=== PATIENT | female | born 1985 | race Caucasian/White ===

== ENCOUNTER 2016-06-08 12:31 | Inpatient (IN) | payer OTHER ==
[2016-06-08 15:07] VITALS: BMI 36.6
--- NOTE | 2016-06-08 17:26 | HP ---
COWS - Scale Resting Pulse: 2= ME 101-120 Sweatin=Flushed/Facial Moisture Restless Observation: 3= Extraneous Movement Pupil Size: 0= Normal to Room Light Bone or Joint Aches: 2= Severe Diffuse Aches Runny Nose/ Eye Tearin= Runny Nose/Eyes GI Upset > 30mins: 1= Stomach Cramp Tremor Observation: 2= Slight Tremor Visible Yawning Observation: 0= None Anxiety or Irritability: 2=Irritable/Anxious Goose Flesh Skin: 0=Smooth Skin COWS Score: 16 CIWA Score - CIWA Score Nausea/Vomitin-Mild Nausea/No Vomiting Muscle Tremors: 4-Moderate,w/Arms Extend Anxiety: 4-Mod. Anxious/Guarded Agitation: 4-Moderately Restless Paroxysmal Sweats: 1-Minimal Palms Moist Orientation: 1-Uncertain about Date Tacttile Disturbances: 0-None Auditory Disturbances: 0-None Visual Disturbances: 0-None Headache: 2-Mild CIWA-Ar Total Score: 17 Admission ROS BHS - HPI Chief Complaint: WITHDRAWAL SX Allergies/Adverse Reactions: Allergies Allergy/AdvReac Type Severity Reaction Status Date / Time No Known Allergies Allergy Verified 06/08/16 16:55 History of Present Illness: 31 YEARS OLD FEMALE WITH LONG HISTORY OF ALCOHOL OPIATE NICOTINE DEPENDENCE HAS DVT DENIES MENTAL ILLNESS IS ADMITTED TO DETOX Exam Limitations: No Limitations - Ebola screening Have you traveled outside of the country in the last 21 days: No Have you had contact with anyone from an Ebola affected area: No Have you been sick,other than usual withdrawal symptoms: No Do you have a fever: No - Review of Systems Constitutional: Chills, Changes in sleep, Weight Stable EENT: reports: Cataracts (LEFT EYE) Respiratory: reports: No Symptoms reported Cardiac: reports: No Symptoms Reported GI: reports: Constipated, Nausea, Poor Fluid Intake, Abdominal cramping : reports: No Symptoms Reported Musculoskeletal: reports: Back Pain Integumentary: reports: Change in Color (RIGHT INNER FORE ARM) Neuro: reports: Tremors Endocrine: reports: No Symptoms Reported Hematology: reports: Blood Clots (LEGS) Psychiatric: reports: Judgement Intact, Mood/Affect Appropiate Other Systems: Reviewed and Negative Patient History - Patient Medical History Hx Anemia: No Hx Asthma: No Hx Chronic Obstructive Pulmonary Disease (COPD): No Hx Cancer: No Hx Cardiac Disorders: No Hx Congestive Heart Failure: No Hx Hypertension: No Hx Hypercholesterolemia: No Hx Pacemaker: No HX Cerebrovascular Accident: No Hx Seizures: No Hx Dementia: No Hx Diabetes: No Hx Gastrointestinal Disorders: No Hx Liver Disease: No Hx Genitourinary Disorders: No Hx Sexually Transmitted Disorders: No Hx Renal Disease (ESRD): No Hx Thyroid Disease: No Hx Human Immunodeficiency Virus (HIV): No Hx Hepatitis C: Yes Hx Depression: No (PATIENT DENIES DEPRESSION X "MANY YEARS" ) Hx Suicide Attempt: Yes (Tried to overdose at age 23 yrs old.) Hx Bipolar Disorder: No Hx Schizophrenia: No - Patient Surgical History Past Surgical History: Yes Hx Neurologic Surgery: No Hx Cataract Extraction: Yes (LEFT EYE 2007) Hx Cardiac Surgery: No Hx Lung Surgery: No Hx Breast Surgery: No Hx Breast Biopsy: No Hx Abdominal Surgery: No Hx Appendectomy: No Hx Cholecystectomy: No Hx Genitourinary Surgery: No Hx Section: No Hx Orthopedic Surgery: No Hx Hysterectomy: No Other Surgical History: Tonsilectomy 18 YEARS OLD Anesthesia Reaction: No - PPD History Previous Implant?: Yes Documented Results: Negative w/proof Implanted On Prior [facility] Admission?: Yes Date: 01/19/16 Results: 0 mm PPD to be Administered?: No - Reproductive History Patient is a Female of Child Bearing Age (11 -55 yrs old): Yes Last Menstrual Period: 05/15/16 Patient : No - Smoking Cessation Smoking history: Current every day smoker Have you smoked in the past 12 months: Yes Aproximately how many cigarettes per day: 20 Cigars Per Day: 0 Hx Chewing Tobacco Use: No Initiated information on smoking cessation: Yes 'Breaking Loose' booklet given: 06/08/16 - Substance & Tx. History Hx Alcohol Use: Yes Hx Substance Use: Yes Substance Use Type: Alcohol, Cocaine, Opiates Hx Substance Use Treatment: Yes - Substances Abused Heroin Route: Injection Frequency: Daily Amount used: 20 bags Age of first use: 20 Date of Last Use: 06/08/16 Alcohol Route: Oral Frequency: Daily Amount used: 6 pk beer Age of first use: 16 Date of Last Use: 06/07/16 Cocaine Route: Smoking Frequency: 1-3 times last 30 days Amount used: $40 Age of first use: 15 Date of Last Use: 06/03/16 Family Disease History - Family Disease History Family Disease History: Heart Disease: Mother Admission Physical Exam [facility] - Vital Signs Vital Signs: Vital Signs - 24 hr 06/08/16 15:04 Temperature 97.5 F L Pulse Rate 110 H Respiratory 18 Rate Blood Pressure 130/85 - Physical General Appearance: Yes: Appropriately Dressed, Moderate Distress, Obese, Tremorous, Irritable, Sweating, Anxious HEENTM: Yes: Hearing grossly Normal, Normal ENT Inspection, Normocephalic, Normal Voice Respiratory: Yes: Chest Non-Tender, Lungs Clear, Normal Breath Sounds, No Respiratory Distress, No Accessory Muscle Use Neck: Yes: Supple, Trachea in good position Breast: Yes: Breasts Symetrical Cardiology: Yes: Regular Rhythm, S1, S2, Tachycardia Abdominal: Yes: Non Tender, Soft Genitourinary: Yes: Within Normal Limits Back: Yes: Normal Inspection Extremities: Yes: Normal Range of Motion, Non-Tender, Tremors Neurological: Yes: Alert, Motor Strength 5/5, Normal Mood/Affect, Normal Response Integumentary: Yes: Warm, Track [place] Lymphatic: Yes: Within Normal Limits - Diagnostic (1) Alcohol dependence with uncomplicated withdrawal Current Visit: Yes Status: Acute (2) Atrial fibrillation Current Visit: Yes Status: Acute Qualifiers: Atrial fibrillation type: paroxysmal Qualified Code(s): I48.0 - Paroxysmal atrial fibrillation Comment: pradaxa (3) Hepatitis C Current Visit: Yes Status: Chronic Qualifiers: Viral hepatitis chronicity: carrier Qualified Code(s): Z22.52 - Carrier of viral hepatitis C Comment: SCHEDULED FOR TREATMENT (4) Nicotine dependence Current Visit: Yes Status: Acute Qualifiers: Nicotine product type: cigarettes Substance use status: in withdrawal Qualified Code(s): F17.213 - Nicotine dependence, cigarettes, with withdrawal (5) Opioid dependence with withdrawal Current Visit: Yes Status: Acute (6) Cocaine dependence, uncomplicated Current Visit: Yes Status: Chronic Cleared for Admission [facility] - Detox or Rehab [facility] Level of Care: Medically Managed Detox Regimen/Protocol: Methadone/Librium [facility] Breath Alcohol Content Breath Alcohol Content: 0 Urine Pregancy Test - Result Urine Test Results: Negative- NO Line Present Urine Drug Screen - Results Drug Screen Negative: No Urine Drug Screen Results: THC-Marijuana, GUERRERO-Cocaine, OPI-Opiates, MET- Methamphetamine, OXY-Oxycodone
[2016-06-08] MEDS ORDERED: NICOTINE POLACRILEX 4 MG GUM BC PRN (17:28)
[2016-06-08] MEDS ORDERED: MAGNESIUM CITRATE 300 ML BOTTLE PO PRN (17:28)
[2016-06-08] MEDS ORDERED: MAGNESIUM HYDROX 2400MG/30ML ORAL SUSPENSION 30 ML CUP PO PRN (17:28)
[2016-06-08] MEDS ORDERED: MAG HYDROX/AL HYDROX/SIMETH 30 ML UNIT-DOSE CUP PO PRN (17:28)
[2016-06-08] MEDS ORDERED: MENTHOL/PHENOL 1 EACH UD MM PRN (17:28)
[2016-06-08] MEDS ORDERED: P-EPHED 60MG/TRIPROLIDI 2.5MG TABLET PO PRN (17:28)
[2016-06-08] MEDS ORDERED: ACETAMINOPHEN 325 MG TABLET (FP) PO PRN (17:28)
[2016-06-08] MEDS ORDERED: guaiFENesin/D-METHORPHAN HB 10 ML UNIT-DOSE CUPS PO PRN (17:28)
[2016-06-08] MEDS ORDERED: LOPERAMIDE HCL 2 MG CAPSULE PO PRN (17:28)
[2016-06-08] MEDS ORDERED: METHADONE HCL 10 MG TABLET (FOR DETOX USE ONLY) PO ONE ×2 (18:15→23:00)
[2016-06-08] MEDS: chlordiazePOXIDE HCL 25 MG CAPSULE PO PRN (19:24)
[2016-06-08] MEDS: DABIGATRAN ETEXILATE MESYLATE 150 MG CAPSULE PO SCH (22:51)
[2016-06-08] MEDS: THIAMINE HCL 100 MG TABLET (FP) PO SCH (22:51)
[2016-06-08] MEDS: diphenhydrAMINE HCL 50 MG CAPSULE PO PRN (22:51)
[2016-06-08] MEDS: chlordiazePOXIDE HCL 25 MG CAPSULE PO SCH (22:51)
[2016-06-08 23:09] LABS: URINE APPEARANCE SLCLOUDY; URINE BILIRUBIN NEGATIVE (NEGATIVE); URINE BLOOD NEGATIVE (NEGATIVE); URINE COLOR AMBER; URINE GLUCOSE (UA) NEGATIVE (NEGATIVE); URINE KETONE TRACE (NEGATIVE); URINE LEUK ESTERASE NEGATIVE (NEGATIVE); URINE NITRITE NEGATIVE (NEGATIVE); URINE UROBILINOGEN 2.0 E.U/dl E.U./dl (0.2-1.0)
[2016-06-08 23:12] LABS: URINE PROTEIN 1+ (NEGATIVE)
[2016-06-08 23:15] LABS: URINE HYALINE CAST 17 /lpf; URINE MUCUS MANY; URINE RBC 6 /hpf (0-3); URINE WBC <1 /hpf (3-5)
[2016-06-09] MEDS: chlordiazePOXIDE HCL 25 MG CAPSULE PO SCH ×4 (05:36→22:32)
[2016-06-09] MEDS: chlordiazePOXIDE HCL 25 MG CAPSULE PO PRN ×3 (07:44→19:34)
[2016-06-09] MEDS ORDERED: METHADONE HCL 10 MG TABLET (FOR DETOX USE ONLY) PO SCH (10:00)
[2016-06-09] MEDS: DABIGATRAN ETEXILATE MESYLATE 150 MG CAPSULE PO SCH ×2 (10:15→22:32)
[2016-06-09] MEDS: PRENATAL VITAMINS W/ FOLIC ACID TABLET (FP) PO SCH (10:15)
[2016-06-09] MEDS: NICOTINE 21 MG/24 HOURS TOPICAL PATCH TD SCH (10:16)
[2016-06-09 10:31] LABS: MCH 28.6 pg (25.7-33.7); MEAN CELL VOLUME 86.7 fl (80-96); MEAN PLT VOLUME 8.4 fl (7.5-11.1); PLATELET COUNT 206 K/MM3 (134-434); RDW 15.7 % (11.6-15.6); WHITE BLOOD COUNT 9.8 K/mm3 (4.0-10.0)
[2016-06-09 10:41] LABS: ANION GAP 13 (8-16); CALCIUM 9.4 mg/dL (8.5-10.1); CO2 26 mmol/L (21-32); GLUCOSE,RANDOM 90 mg/dL (74-106)
[2016-06-09 10:45] LABS: ALK PHOS 69 U/L (45-117); BILIRUBIN,TOTAL 0.4 mg/dL (0.2-1.0); CREATININE 0.9 mg/dL (0.55-1.02); SGOT/AST 14 U/L (15-37); SGPT/ALT 14 U/L (12-78); TOT PROT 7.8 g/dl (6.4-8.2)
[2016-06-09 11:03] LABS: HIV 1 & 2 AB NEGATIVE; HIV 1 AGp24 NEGATIVE
--- NOTE | 2016-06-09 11:07 | EKG ---
Test Reason : Blood Pressure : / mmHG Vent. Rate : 083 BPM Atrial Rate : 083 BPM P-R Int : 148 ms QRS Dur : 090 ms QT Int : 374 ms P-R-T Axes : 029 052 043 degrees QTc Int : 439 ms NORMAL SINUS RHYTHM NORMAL ECG NO PREVIOUS ECGS AVAILABLE Confirmed by BAY GARCIA, ELZA ([id number]) on 06/09/2016 11:07:12 AM Referred By: Neel Cui Confirmed By:ELZA HERMOSILLO MD
--- NOTE | 2016-06-09 12:08 | PN ---
S CIWA - CIWA Score Nausea/Vomitin Muscle Tremors: 3 Anxiety: 3 Agitation: 3 Paroxysmal Sweats: 3 Orientation: 0-Oriented Tacttile Disturbances: 2-Mild Itch/Numbness/Burn Auditory Disturbances: 0-None Visual Disturbances: 0-None Headache: 0-None Present CIWA-Ar Total Score: 16 BHS COWS - Scale Resting Pulse: 1= [place] 81-100 Sweatin=Flushed/Facial Moisture Restless Observation: 1= Difficult to Sit Still Pupil Size: 1= Pupils >than Normal Bone or Joint Aches: 2= Severe Diffuse Aches Runny Nose/ Eye Tearin= Nasal Congestion GI Upset > 30mins: 1= Stomach Cramp Tremor Observation of Outstretched Hands: 2= Slight Tremor Visible Yawning Observation: 0= None Anxiety or Irritability: 2=Irritable/Anxious Goose Flesh Skin: 0=Smooth Skin COWS Score: 13 BHS Progress Note (SOAP) Subjective: interrupted sleep, sweats , bodyaches , lbp Objective: 06/09/16 12:05 Vital Signs Temperature 97.7 F 06/09/16 09:49 Pulse Rate 85 06/09/16 09:49 Respiratory Rate 18 06/09/16 09:49 Blood Pressure 103/71 06/09/16 09:49 O2 Sat by Pulse Oximetry (%) Laboratory Tests 06/08/16 06/08/16 06/09/16 06:00 22:50 06:00 WBC 9.8 D RBC 4.42 Hgb 12.6 Hct 38.3 MCV 86.7 MCHC 33.0 RDW 15.7 H Plt Count 206 MPV 8.4 Sodium Potassium Chloride Carbon Dioxide Anion Gap BUN Creatinine Creat Clearance w eGFR Random Glucose Calcium Total Bilirubin AST ALT Alkaline Phosphatase Total Protein Albumin Urine Color Norma Urine Appearance Slcloudy Urine pH 5.0 Ur Specific [place] 1.028 Urine Protein 1+ H Urine Glucose (UA) Negative Urine Ketones Trace H Urine Blood Negative Urine Nitrite Negative Urine Bilirubin Negative Urine Urobilinogen 2.0 e.u/dl H Ur Leukocyte Esterase Negative Urine RBC 6 Urine WBC <1 Ur Epithelial Cells Few Hyaline Casts 17 Urine Mucus Many HIV 1&2 Antibody Screen Negative HIV P24 Antigen Negative 06/09/16 06:00 WBC RBC Hgb Hct MCV MCHC RDW Plt Count MPV Sodium 142 Potassium 4.2 Chloride 103 Carbon Dioxide 26 Anion Gap 13 BUN 16 D Creatinine 0.9 D Creat Clearance w eGFR > 60 Random Glucose 90 Calcium 9.4 Total Bilirubin 0.4 AST 14 L ALT 14 D Alkaline Phosphatase 69 Total Protein 7.8 Albumin 4.0 D Urine Color Urine Appearance Urine pH Ur Specific [place] Urine Protein Urine Glucose (UA) Urine Ketones Urine Blood Urine Nitrite Urine Bilirubin Urine Urobilinogen Ur Leukocyte Esterase Urine RBC Urine WBC Ur Epithelial Cells Hyaline Casts Urine Mucus HIV 1&2 Antibody Screen HIV P24 Antigen pt aox3 in nad ambulating Assessment: 06/09/16 12:06 withdrawal sx's Plan: cont. detox increase fluids flexeril 10mg tid/prn motrin prn
[2016-06-09] MEDS: THIAMINE HCL 100 MG TABLET (FP) PO SCH (22:32)
[2016-06-09] MEDS: diphenhydrAMINE HCL 50 MG CAPSULE PO PRN (22:33)
[2016-06-10] MEDS: chlordiazePOXIDE HCL 25 MG CAPSULE PO PRN ×4 (03:40→19:54)
[2016-06-10] MEDS: chlordiazePOXIDE HCL 25 MG CAPSULE PO SCH ×3 (06:07→17:48)
--- NOTE | 2016-06-10 09:48 | PN ---
[facility] CIWA - CIWA Score Nausea/Vomitin-No Nausea/No Vomiting Muscle Tremors: 4-Moderate,w/Arms Extend Anxiety: 3 Agitation: 4-Moderately Restless Paroxysmal Sweats: 3 Orientation: 0-Oriented Tacttile Disturbances: 0-None Auditory Disturbances: 0-None Visual Disturbances: 0-None Headache: 1-Very Mild CIWA-Ar Total Score: 15 BHS COWS - Scale Resting Pulse: 1= [place] 81-100 Sweatin=Flushed/Facial Moisture Restless Observation: 1= Difficult to Sit Still Pupil Size: 0= Normal to Room Light Bone or Joint Aches: 2= Severe Diffuse Aches Runny Nose/ Eye Tearin= None GI Upset > 30mins: 2= Nausea/Diarrhea Tremor Observation of Outstretched Hands: 1= Tremor [place], Not Seen Yawning Observation: 2= >3x During Session Anxiety or Irritability: 1=Feels Anxious/Irritable Goose Flesh Skin: 0=Smooth Skin COWS Score: 12 S Progress Note (SOAP) Subjective: sweats interrupted sleep agitation irritable tired Objective: 06/10/16 09:47 Vital Signs Temperature 97.7 F 06/10/16 06:00 Pulse Rate 94 H 06/10/16 06:00 Respiratory Rate 18 06/10/16 06:00 Blood Pressure 128/71 06/10/16 06:00 O2 Sat by Pulse Oximetry (%) Laboratory Tests 06/08/16 06/08/16 06/09/16 06:00 22:50 06:00 WBC 9.8 D RBC 4.42 Hgb 12.6 Hct 38.3 MCV 86.7 MCHC 33.0 RDW 15.7 H Plt Count 206 MPV 8.4 Sodium Potassium Chloride Carbon Dioxide Anion Gap BUN Creatinine Creat Clearance w eGFR Random Glucose Calcium Total Bilirubin AST ALT Alkaline Phosphatase Total Protein Albumin Urine Color Norma Urine Appearance Slcloudy Urine pH 5.0 Ur Specific [place] 1.028 Urine Protein 1+ H Urine Glucose (UA) Negative Urine Ketones Trace H Urine Blood Negative Urine Nitrite Negative Urine Bilirubin Negative Urine Urobilinogen 2.0 e.u/dl H Ur Leukocyte Esterase Negative Urine RBC 6 Urine WBC <1 Ur Epithelial Cells Few Hyaline Casts 17 Urine Mucus Many RPR Titer HIV 1&2 Antibody Screen Negative HIV P24 Antigen Negative 06/09/16 06/09/16 06:00 06:00 WBC RBC Hgb Hct MCV MCHC RDW Plt Count MPV Sodium 142 Potassium 4.2 Chloride 103 Carbon Dioxide 26 Anion Gap 13 BUN 16 D Creatinine 0.9 D Creat Clearance w eGFR > 60 Random Glucose 90 Calcium 9.4 Total Bilirubin 0.4 AST 14 L ALT 14 D Alkaline Phosphatase 69 Total Protein 7.8 Albumin 4.0 D Urine Color Urine Appearance Urine pH Ur Specific [place] Urine Protein Urine Glucose (UA) Urine Ketones Urine Blood Urine Nitrite Urine Bilirubin Urine Urobilinogen Ur Leukocyte Esterase Urine RBC Urine WBC Ur Epithelial Cells Hyaline Casts Urine Mucus RPR Titer Nonreactive HIV 1&2 Antibody Screen HIV P24 Antigen awake/alert ambulating no acute distress Assessment: 06/10/16 09:48 withdrawal sx Plan: continue detox increase fluids psych ordered for insomnia
[2016-06-10] MEDS: CYCLOBENZAPRINE HCL 10 MG TABLET (FP) PO PRN ×2 (10:18→22:23)
[2016-06-10] MEDS: NAPROXEN 500 MG TABLET (FP) PO PRN ×2 (10:18→22:21)
[2016-06-10] MEDS: PRENATAL VITAMINS W/ FOLIC ACID TABLET (FP) PO SCH (10:18)
[2016-06-10] MEDS: NICOTINE 21 MG/24 HOURS TOPICAL PATCH TD SCH (10:19)
[2016-06-10] MEDS: DABIGATRAN ETEXILATE MESYLATE 150 MG CAPSULE PO SCH ×2 (10:19→22:22)
[2016-06-10] MEDS: METHADONE HCL 5 MG TABLET (FOR DETOX USE ONLY) PO SCH (10:19)
--- NOTE | 2016-06-10 16:38 | CONSULT ---
[facility] Psychiatric Consult - Data Date of interview: 06/10/16 Admission source: [facility] Identifying data: Readmission to [facility] for this 31 y/o female seeking detox treatment on for alcohol,cocaine and heroin dependence.Patient is single,a mother of one,domiciled,unemployed and supported on SSI benefits. Substance Abuse History: - Smoking Cessation. Smoking history: Current every day smoker. Have you smoked in the past 12 months: Yes. Aproximately how many cigarettes per day: 20. Cigars Per Day: 0. Hx Chewing Tobacco Use: No. Initiated information on smoking cessation: Yes. 'Breaking Loose' booklet given : 06/08/16. - Substance & Tx. History. Hx Alcohol Use: Yes. Hx Substance Use : Yes. Substance Use Type: Alcohol, Cocaine, Opiates. Hx Substance Use Treatment: Yes. - Substances Abused. Heroin. Route: Injection. Frequency : Daily. Amount used: 20 bags. Age of first use: 20. Date of Last Use: . Alcohol. Route: Oral. Frequency: Daily. Amount used: 6 pk beer. Age of first use: 16. Date of Last Use: 06/07/16. Cocaine. Route: Smoking. Frequency: 1-3 times last 30 days. Amount used: $40. Age of first use: 15. Date of Last Use: 06/03/16. Confirmed by the patient in this interview. Medical History: Atrial fibrillation,DVT in left leg,hepatitis C and history of eye surgery (2006:extraction of cataract in left eye)/tonsillectomy at age 18.Noted a past history of pulmonary embolism (right lung).Patient reports,in this interview,a history of CVA with left sided weakness in 2003 (resolved). Psychiatric History: History of one psychiatric hospitalization ([facility] in 2005) for depression and a serious suicide attempt via overdose with anticoagulant medications (prescribed) in 2005.No OPD care as perself-report.Ms Andres maintains a distant and indifferent attitude throughout the session.Made a vague allusion to the diagnosis of Bipolar Disorder.Patient expresses total disinterest for psychotropic medications with the exception of remeron for insomnia. Physical/Sexual Abuse/Trauma History: Not discussed. Additional Comment: Urine Drug Screen Results: THC-Marijuana, GUERRERO-Cocaine, OPI- Opiates, MET-Methamphetamine, OXY-Oxycodone.Patient denies. Mental Status Exam - Mental Status Exam Alert and Oriented to: Time, Place, Person Cognitive Function: Good Patient Appearance: Well Groomed (obese) Mood: Hopeful, Euthymic Affect: Appropriate, Normal Range Patient Behavior: Fatigued, Appropriate, Cooperative (superficially) Speech Pattern: Clear, Appropriate Voice Loudness: Normal Thought Process: Goal Oriented Thought Disorder: Not Present Hallucinations: Denies Suicidal Ideation: Denies Homicidal Ideation: Denies Insight/Judgement: Poor Sleep: Poorly, Difficulty falling asleep (wants to get back on remeron) Appetite: Good Muscle strength/Tone: Normal Gait/Station: Normal Psychiatric Findings - Problem List ([place] 1, 2,3) (1) Alcohol dependence with uncomplicated withdrawal Current Visit: Yes Status: Acute (2) Opioid dependence with withdrawal Current Visit: Yes Status: Acute (3) Cocaine dependence, uncomplicated Current Visit: Yes Status: Acute (4) Nicotine dependence Current Visit: Yes Status: Acute Qualifiers: Nicotine product type: cigarettes Substance use status: in withdrawal Qualified Code(s): F17.213 - Nicotine dependence, cigarettes, with withdrawal (5) Substance induced mood disorder Current Visit: Yes Status: Acute (6) Amphetamine abuse Current Visit: Yes Status: Acute (7) Atrial fibrillation Current Visit: Yes Status: Chronic Qualifiers: Atrial fibrillation type: paroxysmal Qualified Code(s): I48.0 - Paroxysmal atrial fibrillation Comment: pradaxa (8) Hepatitis C Current Visit: Yes Status: Acute Qualifiers: Viral hepatitis chronicity: carrier Qualified Code(s): Z22.52 - Carrier of viral hepatitis C Comment: SCHEDULED FOR TREATMENT (9) Chronic back pain Current Visit: Yes Status: Chronic Qualifiers: Back pain location: low back pain Back pain laterality: midline Sciatica presence: without sciatica Qualified Code(s): M54.5 - Low back pain; G89.29 - Other chronic pain (10) Insomnia Current Visit: Yes Status: Acute - Initial Treatment Plan Initial Treatment Plan: Psychoeducation.Detoxification in progress.Remeron 7.5 mg po hs (patient's request).Side effects/benefits discussed with the patient.She agrees with this plan.Observation.
[2016-06-10] MEDS: THIAMINE HCL 100 MG TABLET (FP) PO SCH (22:21)
[2016-06-10] MEDS: chlordiazePOXIDE 5 MG CAPSULE PO SCH (22:21)
[2016-06-10] MEDS: MIRTAZAPINE 15 MG TABLET (FP) PO SCH (22:21)
[2016-06-11] MEDS: chlordiazePOXIDE HCL 25 MG CAPSULE PO PRN ×4 (03:46→15:59)
[2016-06-11] MEDS: chlordiazePOXIDE 5 MG CAPSULE PO SCH ×3 (06:07→17:55)
[2016-06-11] MEDS ORDERED: hydrOXYzine PAMOATE 50 MG CAPSULE (FP) PO PRN (07:56)
--- NOTE | 2016-06-11 09:11 | PN ---
S Progress Note (SOAP) Subjective: ALERT,IRRITABLE,ANXIOUS,INTERRUPTED SLEEP,TREMOR Objective: 06/11/16 09:05 Vital Signs Temperature 98.4 F 06/11/16 06:28 Pulse Rate 62 06/11/16 06:28 Respiratory Rate 16 06/11/16 06:28 Blood Pressure 119/69 06/11/16 06:28 O2 Sat by Pulse Oximetry (%) Assessment: 06/11/16 09:05 WITHDRAWAL SYMPTOM Plan: CONTINUE DETOX
[2016-06-11] MEDS: PRENATAL VITAMINS W/ FOLIC ACID TABLET (FP) PO SCH (10:38)
[2016-06-11] MEDS: METHADONE HCL 5 MG TABLET (FOR DETOX USE ONLY) PO SCH (10:38)
[2016-06-11] MEDS: NICOTINE 21 MG/24 HOURS TOPICAL PATCH TD SCH (10:39)
[2016-06-11] MEDS: DABIGATRAN ETEXILATE MESYLATE 150 MG CAPSULE PO SCH ×2 (10:39→22:45)
[2016-06-11] MEDS: MIRTAZAPINE 15 MG TABLET (FP) PO SCH (22:45)
[2016-06-11] MEDS: THIAMINE HCL 100 MG TABLET (FP) PO SCH (22:45)
[2016-06-11] MEDS: chlordiazePOXIDE HCL 10 MG CAPSULE PO SCH (22:45)
[2016-06-12] MEDS: chlordiazePOXIDE HCL 10 MG CAPSULE PO SCH (05:46)
--- NOTE | 2016-06-12 08:31 | PN ---
S Progress Note (SOAP) Subjective: ALERT,NO COMPLAINT Objective: 06/12/16 08:29 Vital Signs Temperature 98.6 F 06/12/16 06:16 Pulse Rate 60 06/12/16 06:16 Respiratory Rate 16 06/12/16 06:16 Blood Pressure 111/67 06/12/16 06:16 O2 Sat by Pulse Oximetry (%) Assessment: 06/12/16 08:29 PATIENT IS STABLE FOR DISCHARGE,NO WITHDRAWAL SYMPTOM Plan: DISCHARGE TODAY,FOLLOW UP WITH AFTER CARE PROGRAM ARRANGEMENT
--- NOTE | 2016-06-12 08:34 | DS ---
[facility] Detox Discharge Summary Admission Date: 06/08/16 Discharge Date: 06/12/16 - History Present History: Alcohol Dependence, Cocaine Dependence, Opioid Dependence Additional Comments: PATIENT IS STALE FOR DISCHARGE,HAS MEDICATIONS AT HOME,FOLLOW UP WITH AFTER CARE PROGRAM ARRANGEMENT AND PMD FOR MEDICAL PROBLEM Pertinent Past History: HEPATITIS C CHRONIC LOW BACK PAIN HISTORY OF ATRIAL FIBRILLATION - Physical Exam Results Vital Signs: Vital Signs Temperature 98.6 F 06/12/16 06:16 Pulse Rate 60 06/12/16 06:16 Respiratory Rate 16 06/12/16 06:16 Blood Pressure 111/67 06/12/16 06:16 O2 Sat by Pulse Oximetry (%) Pertinent Admission Physical Exam Findings: WITHDRAWAL SYMPTOM - Treatment Hospital Course: Detox Protocol Followed, Detoxed Safely, Responded well, Discharged Condition Good Patient has Accepted a Rehab Referral to: DECLINED - Medication Discharge Medications: Ambulatory Orders Dabigatran Etexilate Mesylate [Pradaxa -] 150 mg PO BID 01/17/16 Mirtazapine [Remeron -] 15 mg PO HS #30 tablet 06/10/16 - AMA Did Patient Leave Against Medical Advice: No
[2016-06-12] MEDS: PRENATAL VITAMINS W/ FOLIC ACID TABLET (FP) PO SCH (09:15)
[2016-06-12] MEDS: DABIGATRAN ETEXILATE MESYLATE 150 MG CAPSULE PO SCH (09:15)
[2016-06-12] MEDS ORDERED: METHADONE HCL 10 MG TABLET (FOR DETOX USE ONLY) PO SCH (10:00)
[2016-06-12 10:03] VITALS: BP 112/87; PULSE 104; TEMP 97.9
[2016-06-13] MEDS ORDERED: METHADONE HCL 5 MG TABLET (FOR DETOX USE ONLY) PO SCH (06:00)
== END 2016-06-12 09:22 | disposition home or self-care (01) | DRG 773 ==
LOC: YASAS 12:31 → Y6N 18:05
PROVIDERS: ADMIT Internal Medicine Addiction Medicine; ATTEND Internal Medicine Addiction Medicine
PROC: HZ2ZZZZ Detoxification Services for Substance Abuse Treatment (ICD-10-PCS; principal; 2016-06-12)
DX: F11.23 Opioid dependence with withdrawal (principal); F10.230 Alcohol dependence with withdrawal, uncomplicated; F14.20 Cocaine dependence, uncomplicated; F17.213 Nicotine dependence, cigarettes, with withdrawal; F15.10 Other stimulant abuse, uncomplicated; F19.24 Other psychoactive substance dependence with psychoactive substance-induced mood disorder; G47.00 Insomnia, unspecified; I48.0 Paroxysmal atrial fibrillation; Z79.01 Long term (current) use of anticoagulants; B18.2 Chronic viral hepatitis C; Z86.711 Personal history of pulmonary embolism; Z86.718 Personal history of other venous thrombosis and embolism
CPT/HCPCS: 36415; 80053; 81003; 81015; 85027; 86593; 87389; 93005; 93010